=== PATIENT | male | born 1950 | race Caucasian/White ===

== ENCOUNTER 2018-05-05 15:44 | Emergency (ER) | payer MEDICARE ==
[2018-05-05 16:17] VITALS: BP 140/67
[2018-05-05] MEDS ORDERED: Tetan/Diph/Pertus SYR(Tdap)* 0.5 ML SYR(BOOSTRIX) use SYR IM ONE (16:17)
[2018-05-05] MEDS ORDERED: Lidocaine 2% 10 ML* VIAL INJ ONE (16:18)
[2018-05-05] MEDS ORDERED: Lidocaine 1%* 5 ML VIAL INJ ONE (16:30)
--- NOTE | 2018-05-05 17:51 | UC ---
Laceration HPI - HPI Summary HPI Summary: Pt c/o laceration to right mid, anterior forearm that happened ~ 20 minutes prior to arrival. Pt was moving a large piece of metal and it fell onto right mid forearm. Pt was wearing shirt and jacket at time of accident. - History Of Current Complaint Chief Complaint: UCLaceration Stated Complaint: RIGHT ARM LAC Time Seen by Provider: 05/05/18 16:14 Hx Obtained From: Patient Laceration Location: Arm Mechanism Of Injury: Blunt Trauma Onset/Duration: Sudden Onset Severity: Moderate Pain Intensity: 0 Pain Scale Used: 0-10 Numeric Aggravating Factors: Movement Related History: Dominant Hand Right - Allergies/Home Medications Allergies/Adverse Reactions: Allergies Allergy/AdvReac Type Severity Reaction Status Date / Time No Known Allergies Allergy Verified 05/05/18 16:17 Home Medications: Home Medications Beta [place] 05/05/18 [History] Losartan/Hydrochlorothiazide [Hyzaar 100/12.5 mg] 1 tab PO DAILY 05/05/18 [ History Confirmed 05/05/18] PMH/Surg Hx/FS Hx/Imm Hx Previously Healthy: Yes - Surgical History Surgical History: Yes Surgery Procedure, Year, and Place: appy, hernia repair - Family History Known Family History: Positive: Cardiac Disease - Social History Occupation: Employed Full-time Lives: With Family Alcohol Use: Occasionally Substance Use Type: None Smoking Status (MU): Never Smoked Tobacco Have You Smoked in the Last Year: No - Immunization History Most Recent Tetanus Shot: not certain Vaccination Up to Date: No Review of Systems All Other Systems Reviewed And Are Negative: Yes Constitutional: Positive: Negative Skin: Positive: Other - laceration Eyes: Positive: Negative ENT: Positive: Negative Respiratory: Positive: Negative Cardiovascular: Positive: Negative Gastrointestinal: Positive: Negative Genitourinary: Positive: Negative Motor: Positive: Negative Neurovascular: Positive: Negative Musculoskeletal: Positive: Myalgia Neurological: Positive: Negative Is Patient Immunocompromised?: No Physical Exam Triage Information Reviewed: Yes Appearance: Well-Appearing Vital Signs: Initial Vital Signs Temp 97.5 F 05/05/18 16:14 Pulse 62 05/05/18 16:14 Resp 16 05/05/18 16:14 BP 140/67 05/05/18 16:14 Pulse Ox 100 05/05/18 16:14 Vital Signs Reviewed: Yes Eye Exam: Normal ENT Exam: Normal Dental Exam: Normal Neck exam: Normal Respiratory: Positive: No respiratory distress Musculoskeletal Exam: Normal Musculoskeletal: Positive: Strength Intact, ROM Intact Neurological Exam: Normal Psychological Exam: Normal Skin Exam: Other - laceration right forearm Laceration Repair - Laceration Repair 1 Description: Linear Laceration Size After Repair: Length (cm) - 7, Width (mm) - 15, Depth (mm) - 4 Modified For Repair: No Irrigation With Pressure Irrigation Device: Yes Closure Material: Sutures Closure Method: Single Layer Suture Of: Skin Suture Type: Prolene - 12 sutures of 4-0 placed right forearm Laceration Course/Dx - Course/Dx Course Of Treatment: pt has full ROM of right forearm, all fingers and hand - Differential Dx - Laceration/Wound Differental Diagnoses: Laceration, Tendon Laceration - Diagnosis Provider Diagnosis: Laceration of right forearm without complication Discharge - Sign-Out/Discharge Documenting (check all that apply): Patient Departure All imaging exams completed and their final reports reviewed: No Studies - Discharge Plan Condition: Stable Disposition: HOME Prescriptions: Cephalexin CAP* [Keflex 500 CAP*] 500 mg PO Q8H #15 cap Patient Education Materials: Care For Your Stitches (DC), Laceration (ED) Referrals: Pasha Jordan MD [Primary Care Provider] - 05/15/18 Additional Instructions: Please follow up with your PCP or return to clinic in 8-10 days for suture removal. Please monitor any signs or symptoms for infection that include but not limited to redness, tenderness, purulent discharge, fever or chills. - Billing Disposition and Condition Condition: STABLE Disposition: Home
== END 2018-05-05 17:31 | disposition home or self-care (01) ==
LOC: UCCORT 15:44
DX: S56.921A Laceration of unspecified muscles, fascia and tendons at forearm level, right arm, initial encounter (principal); W20.8XXA Other cause of strike by thrown, projected or falling object, initial encounter; Y92.9 Unspecified place or not applicable
CPT/HCPCS: 12002; 12032; 90471; 90715; 99202; G0463

== ENCOUNTER 2018-05-16 09:31 | Emergency (ER) | payer MEDICARE ==
--- OUTSIDE RECORDS SUMMARY | 2018-05-16 09:42 | XMS REPORT | Continuity of Care Document ---
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 Pasha Jordan MD Primary Care Physician Unavailable Payers Type Date Identification Numbers Payment Provider Subscriber Effective: 2013 Policy Number: [id number] Medicare Jarvis Webb Group Name: [facility] [address] PayID: [id number] [place] [address] Policy Number: [id number] [facility] Jarvis Webb PayID: [id number] [address] [place] [address] Advance Directives Description No Information Available Problems Date Description Provider Status Onset: 10/02/2012 Benign essential hypertension Luis Swanson MD Active Onset: 10/03/2012 Difficulty breathing Luis Swanson MD Active Onset: 10/03/2012 Family history of ischemic heart Luis Swanson MD Active disease Onset: 10/03/2012 Sleep apnea Luis Swanson MD Active Onset: 10/10/2012 Benign hypertensive heart disease Luis Swanson MD Active without congestive heart failure Onset: 02/12/2015 Mitral valve disorder Luis Swanson MD Active Onset: 05/09/2015 Essential hypertension Pasha Jordan MD Active Onset: 05/09/2015 Family history of prostate cancer Pasha Jordan MD Active Onset: 05/10/2016 Raised prostate specific antigen Pasha Jordan MD Active Onset: 05/27/2017 Testicular hypofunction Pasha Jordan MD Active Onset: 02/22/2018 Body mass index 30+ - obesity Luis Swanson MD Active Onset: 05/07/2013 Impotence of organic origin Pasha Jordan MD Active Onset: 05/07/2013 Family history of malignant neoplasm Pasha Jordan MD Active of gastrointestinal tract Onset: 05/07/2013 Benign prostatic hypertrophy without Pasha Jordan MD Active outflow obstruction Onset: 04/20/2009 Obstructive sleep apnea syndrome Charles Valverde MD Active Family History Date Family Member(s) Problem(s) Comments Father due to Cancer, Prostate () - age 84 / diabetes Father due to MD () Father due to DM2 () Mother 84 Mother Congestive Heart Failure Mother CHF Children 4 Siblings 7 First Brother due to MD () - age 62 First Brother Obesity Second Brother due to muscular () dystrophy age 18 Second Brother due to Muscular () Dystrophy Age 18 Third Brother MD age 45 w/stents Third Brother CAD First Sister 67 First Sister Diabetes, Adult Second Sister 62 Second Sister Diabetes, Adult Social History Type Date Description Comments Sex Unknown Marital Status Lives With Spouse Lives With Daughter ETOH Use consumes 2-3 glasses of wine per week ETOH Use consumes 2-3 beers per week Tobacco Use Start: Unknown Patient has never smoked Smoking Status Reviewed: 05/09/18 Patient has never smoked Exercise Exercises sporadically Exercises Type/Frequency irregularly.no home exercise routine.busy/ apartment renovations/remodelin g Allergies, Adverse Reactions, Alerts Date Description Reaction Status Severity Comments 10/02/2012 No Known Drug Allergy Active Medications Medication Date Status Form Strength Qnty SIG Indications Ordering Provider Sildenafil Active Tablets 100mg 6tabs 1/2 or 1 by N52.9 Digiovanna Citrate 018 mouth 1 hour , Pasha, prior to MD intercourse Losartan Active Tablets 100-25mg 90tabs take 1 tablet I10 Digiovanna Potassium/Hyd 015 by mouth once , Pasha rochlorothiaz daily MD jasper I11.9 Bystolic 11/17/2012 Active Tablets 5mg 90tabs take 1 tablet I11.9 Digiovanna, by mouth once MD Pasha daily I10 Vitamin C 10/03/2012 Active Tablets 500mg 1 by mouth every Ismael emerson Smith MD (Sporadically) Vitamin E 10/03/2012 Active Capsules 400Unit 1 by mouth every emerson Swanson MD (Sporadically) Coq-10 10/03/2012 Active Capsules 100mg 1 po qd Ismael, MD Luis Multivitamins 10/03/2012 Active Capsules 1 by mouth every Ismael emerson Smith MD (Sporadically) Aspirin 10/02/2012 Active Tablets 81mg 1 po qd Z8 Ismael, 2. MD Luis [address] [place]-3 Fish Oil 05/04/2012 Active Capsules 1200mg 1 daily Valverde, (Sporadically) MD Charles Astaxanthin 10/03/2012 - Hx Capsules 100mg 1 po qd Ismael, 02/22/2018 MD Luis Ventolin HFA 10/02/2012 - Hx Aerosol 108(90B 2 puffs q4h prn Ismael , 10/03/2012 ase) MD Luis mcg/Act Viagra 10/02/2012 - Hx Tablets 100mg 6t 1/2 or 1 by N5 Digiovanquinn, 05/09/2018 ab mouth 1 hour 2. MD Pasha s prior to 9 intercourse Atenolol 10/02/2012 - Hx Tablets 50mg 1/2 po qd Ismael, 02/12/2015 MD Luis Nasonex 10/02/2012 - Hx Suspension 50mcg/A 2 sprays each Ismael, 10/03/2012 ct nostril qd prn MD Luis Hyzaar 10/02/2012 - Hx Tablets 100-25m 90 1 by mouth every 40 Digiovan, 03/06/2015 g ta day 1. MD Pasha bs 1 402.10 Immunizations CPT Code Status Date Vaccine Reaction Lot # [id number] Given 05/05/2018 Tdap (Adacel) Ages 7 And Above Only CONV CARE [id number] Given 05/08/2014 Pneumococcal 23 Immunization Adult Or Immunosuppressed Patient [id number] Refused 05/09/2018 Flu Vaccine NOS PT WILL NOT BE GETTING [id number] Refused 05/09/2018 Prevnar 13 Pneumococal Conjugate DOES NOT WANT Vaccine [id number] Refused 05/09/2015 Influenza Virus DOESN'T WANT Vaccine,Quadrivalent,Split,Preserv Free 3 Yrs+ [id number] Refused 05/09/2015 Prevnar 13 Pneumococal Conjugate DOESN'T WANT Vaccine Vital Signs Date Vital Result Comment 05/09/2018 8:11am Weight 208.00 lb Heart Rate 74 /min BP Systolic 130 mmHg BP Diastolic 90 mmHg Height 68 inches 5'8" BMI (Body Mass Index) 31.6 kg/m2 02/22/2018 10:10am Weight 204.00 lb Heart Rate 72 /min reg BP Systolic 118 mmHg BP Diastolic 72 mmHg Height 69 inches 5'9" BMI (Body Mass Index) 30.1 kg/m2 05/27/2017 9:41am Weight 203.00 lb Heart Rate 72 /min BP Systolic 140 mmHg BP Diastolic 80 mmHg Respiratory Rate 18 /min Height 69 inches 5'9" BMI (Body Mass Index) 30.0 kg/m2 02/21/2017 10:10am Weight 204.00 lb Heart Rate 68 /min reg BP Systolic 136 mmHg BP Diastolic 80 mmHg Height 69 inches 5'9" BMI (Body Mass Index) 30.1 kg/m2 05/10/2016 8:03am Weight 207.00 lb Heart Rate 74 /min BP Systolic 130 mmHg BP Diastolic 80 mmHg Respiratory Rate 18 /min Height 69 inches 5'9" BMI (Body Mass Index) 30.6 kg/m2 02/20/2016 9:05am Weight 204.00 lb Heart Rate 56 /min regular BP Systolic 156 mmHg BP Diastolic 78 mmHg BP Systolic Recheck 142 mmHg BP Diastolic Recheck 84 mmHg Height 69 inches 5'9" BMI (Body Mass Index) 30.1 kg/m2 05/09/2015 8:09am Weight 204.00 lb Heart Rate 66 /min BP Systolic 142 mmHg L/Reg BP Diastolic 82 mmHg L/Reg BP Systolic Recheck 128 mmHg L at rest BP Diastolic Recheck 82 mmHg L at rest Respiratory Rate 18 /min Height 68.5 inches 5'8.50" BMI (Body Mass Index) 30.6 kg/m2 02/12/2015 10:55am Weight 202.00 lb Heart Rate 72 /min regular BP Systolic 136 mmHg BP Diastolic 74 mmHg Height 69 inches 5'9" BMI (Body Mass Index) 29.8 kg/m2 05/08/2014 8:09am Weight 201.00 lb Down 6# Heart Rate 74 /min BP Systolic 124 mmHg L/LG BP Diastolic 78 mmHg L/LG Respiratory Rate 19 /min Height 67.10 inches 5'7.10" 10/24/2013 10:14am Weight 205.00 lb Heart Rate 72 /min regular BP Systolic 136 mmHg BP Diastolic 74 mmHg Height 69 inches 5'9" BMI (Body Mass Index) 30.3 kg/m2 10/10/2012 1:13pm Weight 204.00 lb Heart Rate 60 /min regular BP Systolic 164 mmHg BP Diastolic 86 mmHg Height 69 inches 5'9" BMI (Body Mass Index) 30.1 kg/m2 10/03/2012 8:40am Weight 207.00 lb Heart Rate 56 /min regular BP Systolic 128 mmHg BP Diastolic 72 mmHg Height 69 inches 5'9" BMI (Body Mass Index) 30.6 kg/m2 Results Test Date Facility Test Result H/L Range Note Laboratory test finding 05/02/2018 [facility] PSA 4.610 ng/mL High 0.000- 4.000 1, 2 Basic (BMP) 05/02/2018 [facility] Sodium 141 mmol/L 135-146 3 Potassium 4.9 mmol/L 3.5-5.2 Chloride# 103 mmol/L 97-110 4 Carbon Dioxide 31 mmol/L 24-34 Glucose 109 mg/dL High 70-105 BUN 18 mg/dL 6-26 Creatinine 0.9 mg/dL 0.5-1.4 Calcium 9.7 mg/dL 8.5-10.2 Non Dorothea Egfr >60 >60 5 Dorothea Egfr >60 >60 6 Anion Gap 7 mmol/L 5-15 7 Laboratory test 05/02/2018 [facility] Total Testosterone 297 ng/dL 285-650 finding Adult Male CBC With Auto Diff 05/02/2018 [facility] WBC 4.2 K/uL 4.1-11.0 RBC 5.00 M/uL 4.60-6.10 Hemoglobin 16.0 gm/dL 13.5-18.0 Hematocrit 47.0 % 41.0-53.0 MCV 94.0 fL 80.0-97.0 MCH 32.0 pg 27.0-32.0 MCHC 34.1 g/dL 32.0-36.0 RDW 13.8 % 11.5-14.5 PLT Count 199 K/ul 140-400 MPV 9.7 FL 7.1-10.7 Neutrophil 62.2 % 35.0-75.0 Lymphocyte 26.4 % 16.0-52.0 Monocyte 8.9 % 2.0-10.0 Eosinophil 1.8 % 0.0-5.0 Basophil 0.7 % 0.0-4.0 Abs Neutrophils 2.6 K/uL 2.1-8.0 Abs Lymphocytes 1.1 K/uL 0.8-5.5 Abs Monocytes 0.4 K/uL 0.1-1.0 Abs Eosinophils 0.1 K/uL 0.0-0.5 Abs Basophils 0.0 K/uL 0.0-0.3 Lipid Treatment 05/02/2018 [facility] Cholesterol 176 mg/dL 50-199 Triglycerides 75 mg/dL 30-200 HDL 49 mg/dL 29- 8 Chol/ HDL Ratio 3.6 ratio Low 4.0-6.7 VLDL 15 mg/dL 2-29 LDL (Calc) 112 mg/dL High 20-99 9 Alt 24 U/L 3-42 Ast 17 U/L 8-42 Lipid Treatment 05/04/2017 [facility] Cholesterol 165 mg/dL 50-199 10 Triglycerides 79 mg/dL 30-200 HDL 54 mg/dL - 11 Chol/ HDL Ratio 3.1 ratio Low 4.0-6.7 VLDL 16 mg/dL 2-29 LDL (Calc) 95 mg/dL 20-99 12 Alt 27 U/L 3-42 Ast 19 U/L 8-42 Basic (BMP) 05/04/2017 [facility] Sodium 144 mmol/L 135-146 13 Potassium 4.3 mmol/L 3.5-5.2 Chloride# 107 mmol/L 97-110 14 Carbon Dioxide 31 mmol/L 24-34 Glucose 104 mg/dL 70-105 Creatinine 0.9 mg/dL 0.5-1.4 Calcium 9.3 mg/dL 8.5-10.2 Non Dorothea Egfr >60 >60 15 Dorothea Egfr >60 >60 16 Anion Gap 6 mmol/L Low 7-16 17 BUN 15 mg/dL 6-26 Laboratory test 05/04/2017 [facility] Total Testosterone 249 ng/dL Low 285- 650 finding Adult Male PSA Total And Free 05/04/2017 [facility] PSA Total 4.6 ng/mL High (0.0-4.0) -RL PSA Free 1.4 ng/mL PSA % Free 30 % 18 CBC With Auto Diff 08/09/2016 [facility] WBC 4.9 K/uL 4.1-11.0 19 RBC 4.86 M/uL 4.60-6.10 Hemoglobin 15.5 gm/dL 13.5-18.0 Hematocrit 45.0 % 41.0-53.0 MCV 92.7 fL 80.0-97.0 MCH 31.9 pg 27.0-32.0 MCHC 34.5 g/dL 32.0-36.0 RDW 13.6 % 11.5-14.5 PLT Count 190 K/ul 140-400 Neutrophil 62.0 % 35.0-75.0 Lymphocyte 25.1 % 16.0-52.0 Monocyte 10.2 % High 2.0-10.0 Eosinophil 2.1 % 0.0-5.0 Basophil 0.6 % 0.0-4.0 Abs Neutrophils 3.1 K/uL 2.1-8.0 Abs Lymphocytes 1.2 K/uL 0.8-5.5 Abs Monocytes 0.5 K/uL 0.1-1.0 Abs Eosinophils 0.1 K/uL 0.0-0.5 Abs Basophils 0.0 K/uL 0.0-0.3 PSA Total And Free -RL 08/09/2016 [facility] PSA Total 4.6 ng/mL High (0.0- 4.0) 20 PSA Free 1.6 ng/mL PSA % Free 35 % 21 Laboratory test finding 08/09/2016 [facility] TSH 2.55 uIU/mL 0.35-4.94 22 Total Testosterone Adult Male 255 ng/dL Low 285-650 Lipid Treatment 02/09/2016 [facility] Cholesterol 186 mg/dL 50-199 23 Triglycerides 69 mg/dL 30-200 HDL 52 mg/dL 29-71 24 Chol/ HDL Ratio 3.6 ratio Low 4.0-6.7 VLDL 14 mg/dL 2-29 LDL (Calc) 120 mg/dL High 20-99 25 Alt 22 U/L 3-42 Ast 16 U/L 8-42 PSA [facility] And Free -[facility]/mL High (0.0- 4.0) 26 PSA Free 1.3 ng/mL PSA % Free 22 % 27 Basic (BMP) 02/09/2016 [facility] Sodium 135 mmol/L 134-142 28 Potassium 4.9 mmol/L 3.5-5.2 Chloride 101 mmol/L 97-109 Carbon Dioxide 30 mmol/L 24-34 Glucose 99 mg/dL 70-105 BUN 17 mg/dL 6-26 Creatinine 0.9 mg/dL 0.5-1.4 Calcium 9.5 mg/dL 8.5-10.2 Anion Gap 9 mmol/L 6-14 Non Dorothea Egfr >60 >60 29 Dorothea Egfr >60 >60 30 PSA Total And Free -RL 07/21/2015 [facility] PSA Total 5.5 ng/mL High (0.0- 4.0) 31 PSA Free 1.5 ng/mL PSA % Free 27 % 32 Basic (BMP) 05/09/2015 [facility] Sodium 139 mmol/L 134-142 33 Potassium 4.3 mmol/L 3.5-5.2 Chloride 104 mmol/L 97-109 Carbon Dioxide 30 mmol/L 24-34 Glucose 109 mg/dL High 70-105 BUN 19 mg/dL 6-26 Creatinine 0.9 mg/dL 0.5-1.4 Calcium 9.6 mg/dL 8.5-10.2 Anion Gap 9 mmol/L 6-14 Non Dorothea Egfr >60 >60 34 Dorothea Egfr >60 >60 35 Laboratory test 05/09/2015 [facility] PSA 5.320 Results High 0.000-4.000 36 finding ve <SEE NOTE> ng/mL Lipid Treatment 05/09/2015 [facility] Cholesterol 180 mg/dL 50-199 Triglycerides 81 mg/dL 30-200 HDL 53 mg/dL 29-71 37 Chol/ HDL Ratio 3.4 ratio Low 4.0-6.7 VLDL 16 mg/dL 2-29 LDL (Calc) 111 mg/dL High 20-99 38 Alt 36 U/L 3-42 Ast 21 U/L 8-42 Laboratory test finding 05/08/2014 N2N/CCD Import Alt 31.0 U/L 21.0- 72.0 Ast 24.0 U/L 17.0-59.0 BUN 21.0 mg/dL 9.0-21.0 BUN/Creat Ratio 26.3 ratio High 12.0-20.0 Calcium 9.7 mg/dL 8.7-10.5 Chloride 106.0 mmol/L 98.0-107.0 Co2 29.0 mmol/L 22.0-30.0 Creatinine-Serum 0.8 mg/dL 0.8-1.5 Glucose 106.0 mg/dL 75.0-110.0 Potasium 4.5 mmol/L 3.6-5.0 Sodium 142.0 mmil/L 137.0-145.0 eGFR 103.1 Lipid Panel 05/08/2014 N2N/CCD Import Chol/HDL Ratio 3.6 ratio Cholesterol 188.0 mg/dL 50.0-199.0 HDL 52.0 mg/dL 29.0-67.0 LDL, Calculated 124.6 mg/dL 20.0-129.0 Triglycerides 57.0 mg/dL 30.0-249.0 vLDL 11.4 ng/dL Laboratory test finding 05/08/2014 N2N/CCD Import %Free PSA 30.3 % . 39 Hepatitis C Antibody Nonreactive Nonreactive PSA,Free 1.15 N/Ang/mL 40 Prostate-specific antigen,Seru 3.8 ng/mL 0.0-4.0 41 Signal/Cutoff ratio < 0.02 <0.80 42 Lipid Panel 05/07/2013 [facility] Cholesterol Total 171 Z#Cholesterol/HDL Ratio 3.7 HDL Cholesterol- 46 Z#LDL, Low Density Lipoprotein 109.0 Triglycerides 80 Z#VLDL Cholesterol 16.0 1 05/16 preOV 2 Beginning 07/25/06 PSA values assayed at [facility] uses chemiluminescence methodology manufactured by [employer] for use on the DXI analyzer. Values obtained with different assay methods or kits can not be used interchangeably. Serum PSA measurement is not an absolute test for malignancy. The PSA value should be used in conjunction with information available from clinical evaluation and other diagnostic procedures. 3 Updated reference range on new analyzer 4 Updated reference range on new analyzer 5 Concerning GFR Guidelines: Normal function or mild renal disease, if clinically at risk: >/=60 mL/min Moderately decreased: 30-59 Severely decreased: 15-29 Renal failure: <15 Glomerular Filtration Rate (GFR) is estimated based on the MDRD equation, which assumes a steady state for creatinine as recommended by the National Kidney Disease Education Program in conjunction with the National Institutes of Health and the National Kidney Foundation. Clinical conditions in which it may be necessary to measure GFR by using clearance methods include extremes of age and body size, severe malnutrition or obesity, diseases of skeletal muscle, paraplegia or quadriplegia, vegetarian diet, rapidly changing kidney function, and calculation of the dose of potentially toxic drugs that are excreted by the kidneys. 6 Concerning GFR Guidelines for Americans: Normal function or mild renal disease, if clinically at risk: >/=60 mL/min Moderately decreased: 30-59 Severely decreased: 15-29 Renal failure: <15 7 Updated Reference Range 8 Per NCEP ATP III Guidelines: Results lower than 40 mg/dL are suggestive of increased risk for coronary artery disease. Results > or=to 60 mg/dL are considered a negative risk factor. 9 Per NCEP ATP III Guidelines: Normal Population <130 Patients with medical conditions: CHD/DM Optimal: <100 Borderline high: 130-159 High: 160-189 Very high: >189 10 05/15 preOV 11 Per NCEP ATP III Guidelines: Results lower than 40 mg/dL are suggestive of increased risk for coronary artery disease. Results > or=to 60 mg/dL are considered a negative risk factor. 12 Per NCEP ATP III Guidelines: Normal Population <130 Patients with medical conditions: CHD/DM Optimal: <100 Borderline high: 130-159 High: 160-189 Very high: >189 13 Updated reference range on new analyzer 14 Updated reference range on new analyzer 15 Concerning GFR Guidelines: Normal function or mild renal disease, if clinically at risk: >/=60 mL/min Moderately decreased: 30-59 Severely decreased: 15-29 Renal failure: <15 Glomerular Filtration Rate (GFR) is estimated based on the MDRD equation, which assumes a steady state for creatinine as recommended by the National Kidney Disease Education Program in conjunction with the National Institutes of Health and the National Kidney Foundation. Clinical conditions in which it may be necessary to measure GFR by using clearance methods include extremes of age and body size, severe malnutrition or obesity, diseases of skeletal muscle, paraplegia or quadriplegia, vegetarian diet, rapidly changing kidney function, and calculation of the dose of potentially toxic drugs that are excreted by the kidneys. 16 Concerning GFR Guidelines for Americans: Normal function or mild renal disease, if clinically at risk: >/=60 mL/min Moderately decreased: 30-59 Severely decreased: 15-29 Renal failure: <15 17 Updated reference range on new analyzer 18 % FREE PSA PROBABILITY OF CANCER 0 - 10% 56% 10 - 15% 28% 15 - 20% 20% 20 - 25% 16% GREATER THAN 25% 8% THE FREE PSA PERCENTAGE IS AN AID IN DISTINGUISHING PROSTATE CANCER FROM BENIGN PROSTATIC CONDITIONS IN MEN AGE 50 AND OLDER WITH A TOTAL PSA BETWEEN 3 AND 10 NG/ML AND NEGATIVE DIGITAL RECTAL EXAMINATION FINDINGS. PROSTATIC BIOPSY IS REQUIRED FOR THE DIAGNOSIS OF CANCER. (See: CORBIN 1998; 279: 7585-4117) METHOD USED TO ASSAY BOTH FREE PSA AND TOTAL PSA IS VERNA ACCESS/DXI (CHEMILUMINESCENCE IMMUNOASSAY, HYBRITECH CALIBRATION). RESULTS SHOULD NOT BE INTERPRETED ABSOLUTE EVIDENCE FOR THE PRESENCE OR ABSENCE OF MALIGNANT DISEASE. VALUES OBTAINED WITH DIFFERENT ASSAY METHODS OR KITS CANNOT BE USED INTERCHANGEABLY. Unless otherwise specified, testing performed by [id number] [address] [place] [id number] 08/1308/09/16: PSA STILL PENDING 20 08/13 21 % FREE PSA PROBABILITY OF CANCER 0 - 10% 56% 10 - 15% 28% 15 - 20% 20% 20 - 25% 16% GREATER THAN 25% 8% THE FREE PSA PERCENTAGE IS AN AID IN DISTINGUISHING PROSTATE CANCER FROM BENIGN PROSTATIC CONDITIONS IN MEN AGE 50 AND OLDER WITH A TOTAL PSA BETWEEN 3 AND 10 NG/ML AND NEGATIVE DIGITAL RECTAL EXAMINATION FINDINGS. PROSTATIC BIOPSY IS REQUIRED FOR THE DIAGNOSIS OF CANCER. (See: CORBIN 1998; 279: 1954-3731) METHOD USED TO ASSAY BOTH FREE PSA AND TOTAL PSA IS VERNA ACCESS/DXI (CHEMILUMINESCENCE IMMUNOASSAY, HYBRITECH CALIBRATION). RESULTS SHOULD NOT BE INTERPRETED ABSOLUTE EVIDENCE FOR THE PRESENCE OR ABSENCE OF MALIGNANT DISEASE. VALUES OBTAINED WITH DIFFERENT ASSAY METHODS OR KITS CANNOT BE USED INTERCHANGEABLY. Unless otherwise specified, testing performed by [id number] [address] [place] [id number] 08/1308/09/16: PSA STILL PENDING 23 faxed to get at [facility] labCC: DR SWANSON 05/14 PRE-OV 24 Per NCEP ATP III Guidelines: Results lower than 40 mg/dL are suggestive of increased risk for coronary artery disease. Results > or=to 60 mg/dL are considered a negative risk factor. 25 Per NCEP ATP III Guidelines: Normal Population <130 Patients with medical conditions: CHD/DM Optimal: <100 Borderline high: 130-159 High: 160-189 Very high: >189 26 CC: DR SWANSON 05/14 PRE-OV 27 % FREE PSA PROBABILITY OF CANCER 0 - 10% 56% 10 - 15% 28% 15 - 20% 20% 20 - 25% 16% GREATER THAN 25% 8% THE FREE PSA PERCENTAGE IS AN AID IN DISTINGUISHING PROSTATE CANCER FROM BENIGN PROSTATIC CONDITIONS IN MEN AGE 50 AND OLDER WITH A TOTAL PSA BETWEEN 3 AND 10 NG/ML AND NEGATIVE DIGITAL RECTAL EXAMINATION FINDINGS. PROSTATIC BIOPSY IS REQUIRED FOR THE DIAGNOSIS OF CANCER. (See: CORBIN 1998; 279: 2587-8357) METHOD USED TO ASSAY BOTH FREE PSA AND TOTAL PSA IS VERNA ACCESS IMMUNOASSAY SYSTEM HYBRITECH FREE PSA AND TOTAL PSA. RESULTS SHOULD NOT BE INTERPRETED ABSOLUTE EVIDENCE FOR THE PRESENCE OR ABSENCE OF MALIGNANT DISEASE. VALUES OBTAINED WITH DIFFERENT ASSAY METHODS OR KITS CANNOT BE USED INTERCHANGEABLY. Unless otherwise specified, testing performed by [facility] [address] [place] [id number] faxed to get at [facility] labCC: DR SWANSON 05/14 PRE-OV 29 Concerning GFR Guidelines: Normal function or mild renal disease, if clinically at risk: >/=60 mL/min Moderately decreased: 30-59 Severely decreased: 15-29 Renal failure: <15 Glomerular Filtration Rate (GFR) is estimated based on the MDRD equation, which assumes a steady state for creatinine as recommended by the National Kidney Disease Education Program in conjunction with the National Institutes of Health and the National Kidney Foundation. Clinical conditions in which it may be necessary to measure GFR by using clearance methods include extremes of age and body size, severe malnutrition or obesity, diseases of skeletal muscle, paraplegia or quadriplegia, vegetarian diet, rapidly changing kidney function, and calculation of the dose of potentially toxic drugs that are excreted by the kidneys. 30 Concerning GFR Guidelines for Americans: Normal function or mild renal disease, if clinically at risk: >/=60 mL/min Moderately decreased: 30-59 Severely decreased: 15-29 Renal failure: <15 31 07/15 32 % FREE PSA PROBABILITY OF CANCER 0 - 10% 56% 10 - 15% 28% 15 - 20% 20% 20 - 25% 16% GREATER THAN 25% 8% THE FREE PSA PERCENTAGE IS AN AID IN DISTINGUISHING PROSTATE CANCER FROM BENIGN PROSTATIC CONDITIONS IN MEN AGE 50 AND OLDER WITH A TOTAL PSA BETWEEN 3 AND 10 NG/ML AND NEGATIVE DIGITAL RECTAL EXAMINATION FINDINGS. PROSTATIC BIOPSY IS REQUIRED FOR THE DIAGNOSIS OF CANCER. (See: CORBIN 1998; 279: 1693-9323) METHOD USED TO ASSAY BOTH FREE PSA AND TOTAL PSA IS VERNA ACCESS IMMUNOASSAY SYSTEM HYBRITECH FREE PSA AND TOTAL PSA. RESULTS SHOULD NOT BE INTERPRETED ABSOLUTE EVIDENCE FOR THE PRESENCE OR ABSENCE OF MALIGNANT DISEASE. VALUES OBTAINED WITH DIFFERENT ASSAY METHODS OR KITS CANNOT BE USED INTERCHANGEABLY. Unless otherwise specified, testing performed by [facility] [address] [place] [id number] [phone] cc: Dr Swanson (SENT 05/11 - AD) 34 Concerning GFR Guidelines: Normal function or mild renal disease, if clinically at risk: >/=60 mL/min Moderately decreased: 30-59 Severely decreased: 15-29 Renal failure: <15 Glomerular Filtration Rate (GFR) is estimated based on the MDRD equation, which assumes a steady state for creatinine as recommended by the National Kidney Disease Education Program in conjunction with the National Institutes of Health and the National Kidney Foundation. Clinical conditions in which it may be necessary to measure GFR by using clearance methods include extremes of age and body size, severe malnutrition or obesity, diseases of skeletal muscle, paraplegia or quadriplegia, vegetarian diet, rapidly changing kidney function, and calculation of the dose of potentially toxic drugs that are excreted by the kidneys. 35 Concerning GFR Guidelines for Americans: Normal function or mild renal disease, if clinically at risk: >/=60 mL/min Moderately decreased: 30-59 Severely decreased: 15-29 Renal failure: <15 36 5.320 Results verified by repeat analysis Beginning 07/25/06 PSA values assayed at [facility] uses an EIA methodology manufactured by [employer] for use on the DXI analyzer. Values obtained with different assay methods or kits can not be used interchangeably. Serum PSA measurement is not an absolute test for malignancy. The PSA value should be used in conjunction with information available from clinical evaluation and other diagnostic procedures. 37 Per NCEP ATP III Guidelines: Results lower than 40 mg/dL are suggestive of increased risk for coronary artery disease. Results > or=to 60 mg/dL are considered a negative risk factor. 38 Per NCEP ATP III Guidelines: Normal Population <130 Patients with medical conditions: CHD/DM Optimal: <100 Borderline high: 130-159 High: 160-189 Very high: >189 39 The table below lists the probability of prostate cancer for men with non-suspicious MALINI results and total PSA between 4 and 10 ng/mL, by patient age (Myesha et al, CORBIN 1998, 279:1542). % Free PSA 50-64 yr 65-75 yr 0.00- 10.00% 56% 55% 10.01-15.00% 24% 35% 15.01-20.00% 17% 23% 20.01-25.00% 10% 20% > 25.00% 5% 9% Please note: Myesha et al did not make specific recommendations regarding the use of percent free PSA for any other population of men. Performed at: - [facility] [id number] Transcript Clerk: Tina Sharma MD, Phone: [phone] 40 Eliseo ECLIA methodology. 41 [employer]iseo ECLIA methodology. According to the [employer], Serum PSA should decrease and remain at undetectable levels after radical prostatectomy. The AUA defines biochemical recurrence as an initial PSA value 0.2 ng/mL or greater followed by a subsequent confirmatory PSA value 0.2 ng/mL or greater. Values obtained with different assay methods or kits cannot be used interchangeably. Results cannot be interpreted as absolute evidence of the presence or absence of malignant disease. 42 Antibodies to HCV not detected; does not exclude early acute HCV infection. Procedures Date Code Description Status 05/09/2018 26106 Electrocardiogram Complete Completed 02/22/2018 26911 Cardiovascular Stress Test W/Interpretation & Report Completed 02/21/2017 00946 Cardiovascular Stress Test W/Interpretation & Report Completed 03/09/2016 [id number] Colonoscopy Completed 02/20/2016 11673 Electrocardiogram Complete Completed 02/12/2015 10601 [facility] [employer] Performance Continuous Completed Electrocardio 02/12/2015 80896 Doppler Color Flow Velocity Mapping Completed 02/12/2015 23453 Doppler Echocardiography Complete Completed 10/24/2013 64793 [facility] [employer] Performance Continuous Completed Electrocardio 10/24/2013 58795 Doppler Color Flow Velocity Mapping Completed 10/24/2013 65594 Doppler Echocardiography Complete Completed 10/10/2012 33950 [facility] [employer] Performance Continuous Completed Electrocardio 10/10/2012 57786 Doppler Color Flow Velocity Mapping Completed 10/10/2012 78182 Doppler Echocardiography Complete Completed 10/03/2012 84854 Electrocardiogram Complete Completed Encounters Type Date Location Provider Dx Diagnosis Office Visit 05/09/2018 [facility] Nikki, M25.512 Pain in LEFT 8:15a MD Pasha shoulder R00.2 Palpitations I10 Essential (primary) hypertension N40.0 Benign prostatic hyperplasia without lower urinry tract symp R97.20 Elevated prostate specific antigen [PSA] Z82.49 Family hx of ischem heart dis and oth dis of the circ sys G47.33 Obstructive sleep apnea (adult) (pediatric) E29.1 Testicular hypofunction Z00.00 Encntr for general adult medical exam w/o abnormal findings Z68.31 Body mass index (BMI) 31.0-31.9, adult Office Visit 02/22/2018 10:00a [facility] Ismael I11.9 Hypertensive heart Cardiology MD Luis disease without heart failure Z82.49 Family hx of ischem heart dis and oth dis of the circ sys G47.33 Obstructive sleep apnea (adult) (pediatric) Z68.30 Body mass index (BMI) 30.0-30.9, adult Office Visit 05/27/2017 10:00a [facility] Pasha Jordan MD I10 Essential ( primary) hypertension N40.0 Benign prostatic hyperplasia without lower urinry tract symp R97.20 Elevated prostate specific antigen [PSA] E29.1 Testicular hypofunction G47.33 Obstructive sleep apnea (adult) (pediatric) Z82.49 Family hx of ischem heart dis and oth dis of the circ sys Z00.00 Encntr for general adult medical exam w/o abnormal findings G25.0 Essential tremor Z68.30 Body mass index (BMI) 30.0-30.9, adult Office Visit 02/21/2017 10:00a [facility] Ismael I11.9 Hypertensive heart Cardiology MD Luis disease without heart failure Z82.49 Family hx of ischem heart dis and oth dis of the circ sys G47.33 Obstructive sleep apnea (adult) (pediatric) Office Visit 05/10/2016 8:15a [facility] Pasha Jordan MD I10 Essential ( primary) hypertension G47.33 Obstructive sleep apnea (adult) (pediatric) N40.0 Benign prostatic hyperplasia without lower urinry tract symp R97.20 Elevated prostate specific antigen [PSA] Z82.49 Family hx of ischem heart dis and oth dis of the circ sys R53.83 Other fatigue Z00.00 Encntr for general adult medical exam w/o abnormal findings Office Visit 02/20/2016 9:00a [facility] Ismael I11.9 Hypertensive heart Cardiology MD Luis disease without heart failure Z82.49 Family hx of ischem heart dis and oth dis of the circ sys G47.33 Obstructive sleep apnea (adult) (pediatric) Office Visit 05/09/2015 8:15a [facility] Pasha Jordan MD I10 Essential ( primary) hypertension G47.33 Obstructive sleep apnea (adult) (pediatric) N40.0 Enlarged prostate without lower urinary tract symptoms Z82.49 Family hx of ischem heart dis and oth dis of the circ sys Z80.0 Family history of malignant neoplasm of digestive organs Z80.42 Family history of malignant neoplasm of prostate Office Visit 02/12/2015 [facility], 402.10 Hypertensive Heart 11:15a Cardiology MD Luis Disease Benign W/O Heart Failure 424.0 Mitral Valve Disorder V17.3 History Family Ischemic Heart Disease 780.57 Apnea, Unspecified Sleep Apnea Office Visit 10/24/2013 [facility] Ismael, 402.10 Hypertensive Heart 11:00a Cardiology MD Luis Disease Benign W/O Heart Failure 780.57 Apnea, Unspecified Sleep Apnea V17.3 History Family Ischemic Heart Disease Office Visit 10/10/2012 [facility], 402.10 Hypertensive Heart 1:00p Cardiology MD Luis Disease Benign W/O Heart Failure V17.3 History Family Ischemic Heart Disease 780.57 Apnea, Unspecified Sleep Apnea Office Visit 10/03/2012 8:00a [facility] Ismael, 401.1 Hypertension Cardiology MD Luis Benign 786.09 Dyspnea & Respiratory Abnormalities Other V17.3 History Family Ischemic Heart Disease 780.57 Apnea, Unspecified Sleep Apnea Plan of Treatment Future Appointment(s):05/03/2019 7:35 am - Schedule, Laboratory at [facility]2018 8:30 am - Pasha Jordan MD at [facility]01/31/2019 9:15 am - Luis Swanson MD at [facility]01/31/2019 8:00 am - ECHO - Loc A2 at [facility]05/09/2018 - Pasha Jordan, MDM25.512 Pain in LEFT shoulderNew Orders:Physical Therapy, Ordered: 05/09/18R00.2 PalpitationsNew Labs :TSH, Scheduled: 05/03/19I10 Essential (primary) hypertensionNew Labs:Basic (BMP ), Scheduled: 05/03/19Follow up:Follow up in 1 year - 30 minutes, after fasting labsN40.0 Benign prostatic hyperplasia without lower urinary tract symR97.20 Elevated prostate specific antigen [PSA]New Labs:PSA, Scheduled: 05/03/19Z82.49 Family history of ischemic heart disease and other igrjbysmM16.33 Obstructive sleep apnea (adult) (pediatric)New Labs:CBC with Auto Diff-fcmg, Scheduled: 10/15E29.1 Testicular hypofunctionNew Labs:Testosterone,Total-Male, Scheduled: 05/03/19Z00.00 Encounter for general adult medical examination without abnoZ68.31 Body mass index (BMI) 31.0-31.9, adultAllNew Medication:Sildenafil Citrate 100 mg - 1/2 or 1 by mouth 1 hour prior to intercourse
[2018-05-16 09:43] VITALS: BP 141/75
--- NOTE | 2018-05-16 09:57 | UC ---
HPI Wound/Suture Re-check - HPI Summary HPI Summary: here for suture removal laceration of the right forearm 11 [address] were [address] here at the urgent care wound is healing well, minimal erythema, no discharge - History Of Current Complaint Chief Complaint: UCLaceration Stated Complaint: STITCH REMOVAL-DONE HERE Time Seen by Provider: 05/16/18 09:44 Hx Obtained From: Patient Onset/Duration: Sudden Onset, Lasting Days - 11, Still Present Severity: Moderate Pain Intensity: 0 Procedure Type: suture remvoal right forearm Surgery Date: 05/05/18 - Allergies/Home Medications Allergies/Adverse Reactions: Allergies Allergy/AdvReac Type Severity Reaction Status Date / Time No Known Allergies Allergy Verified 05/16/18 09:41 PMH/Surg Hx/FS Hx/Imm Hx Cardiovascular History: Hypertension - Surgical History Surgical History: Yes Surgery Procedure, Year, and Place: appy, hernia repair - Family History Known Family History: Positive: Cardiac Disease - Social History Alcohol Use: Occasionally Substance Use Type: None Smoking Status (MU): Never Smoked Tobacco Have You Smoked in the Last Year: No - Immunization History Most Recent Tetanus Shot: not certain Vaccination Up to Date: No Review of Systems All Other Systems Reviewed And Are Negative: Yes Constitutional: Positive: Negative Skin: Positive: Negative Eyes: Positive: Negative ENT: Positive: Negative Is Patient Immunocompromised?: No Physical Exam Triage Information Reviewed: Yes Appearance: Well-Appearing, No Pain Distress, Well-Nourished Vital Signs: Initial Vital Signs Temp 97.8 F 05/16/18 09:41 Pulse 67 05/16/18 09:41 Resp 15 05/16/18 09:41 BP 141/75 05/16/18 09:41 Pulse Ox 98 05/16/18 09:41 Vital Signs Reviewed: Yes Eye Exam: Normal Eyes: Positive: Conjunctiva Clear ENT: Positive: Normal ENT inspection, Hearing grossly normal Neck: Positive: Supple Respiratory: Positive: Chest non-tender, Lungs clear, Normal breath sounds Cardiovascular: Positive: RRR, No Murmur, Pulses Normal Skin: Positive: Other - lacerartion right forearm , 4 cm in diameter , 6 sutures intact, laceration is healing well, minimal erythema, no discharge, sutures were removed Course/Dx - Diagnosis Provider Diagnosis: Laceration of right forearm, Visit for suture removal Discharge - Sign-Out/Discharge Documenting (check all that apply): Patient Departure All imaging exams completed and their final reports reviewed: No Studies - Discharge Plan Condition: Stable Disposition: HOME Patient Education Materials: Stitches Removal (ED) Referrals: Pasha Jordan MD [Primary Care Provider] - If Needed - Billing Disposition and Condition Condition: STABLE Disposition: Home
== END 2018-05-16 09:55 | disposition home or self-care (01) ==
LOC: UCCORT 09:31
DX: S51.811D Laceration without foreign body of right forearm, subsequent encounter (principal); X58.XXXD Exposure to other specified factors, subsequent encounter